=== PATIENT | male | born 1955 | race Caucasian/White ===

== ENCOUNTER 2020-08-18 10:21 | Day surgery (SDC) | payer MEDICARE, MEDICAID ==
[~2020-08-18 10:21] MED LIST: Bupivacaine 0.5% 50 ML MDV ONE
[2020-08-18] MEDS ORDERED: Lactated Ringers 1,000 ML IV SCH (11:30)
[2020-08-18] MEDS ORDERED: fentaNYL 100 MCG/2 ML SDV ONE (11:59)
[2020-08-18] MEDS ORDERED: Propofol 200 MG/20 ML SDV ONE (11:59)
[2020-08-18] MEDS ORDERED: Midazolam 1 MG/ML 2 ML SDV ONE (11:59)
[2020-08-18] MEDS ORDERED: Lidocaine 1% with EPINEPHrine 1:100,000 50 ML MDV ONE (12:47)
--- NOTE | 2020-08-18 13:50 | CR ---
INTRAOPERATIVE FLUOROSCOPY ANKLE Fluoroscopy time: 3.0 seconds 2 spot images
[2020-08-18] MEDS ORDERED: Acetaminophen/HYDROcodone 325-5 MG Tab PO ONE (13:58)
== END 2020-08-18 14:45 | disposition home or self-care (01) ==
LOC: JP.SDS 10:21
PROVIDERS: ATTEND Orthopaedic Surgery
DX: T84.84XA Pain due to internal orthopedic prosthetic devices, implants and grafts, initial encounter (principal); I10 Essential (primary) hypertension; I48.91 Unspecified atrial fibrillation; E78.5 Hyperlipidemia, unspecified; F17.210 Nicotine dependence, cigarettes, uncomplicated; Z79.899 Other long term (current) drug therapy; Z79.82 Long term (current) use of aspirin; Z98.890 Other specified postprocedural states
CPT/HCPCS: 36415; 76000; 76000-26; 84132; A9270-GY; J2250; J2704; J3010; J3490; J7120